=== PATIENT | female | born 1990 | race Caucasian/White ===

== ENCOUNTER 2016-03-01 19:38 | Emergency (ER) | payer SELFPAY ==
[2016-03-01 21:25] VITALS: BP 134/69
--- NOTE | 2016-03-01 21:58 | UC ---
Respiratory Complaint HPI - HPI Summary HPI Summary: Cough, fatigue, vomiting, for 2 days - History of Current Complaint Chief Complaint: UCGeneralIllness Stated Complaint: COUGH VOMITING Time Seen by Provider: 03/01/16 21:28 Hx Obtained From: Patient Hx Last Menstrual Period: 02/23/16 ?: No Onset/Duration: Sudden Onset, Lasting Days - 2, Still Present Timing: Constant Severity Initially: Moderate Severity Currently: Moderate Character: Cough: Nonproductive Aggravating Factors: Nothing Alleviating Factors: Nothing Associated Signs And Symptoms: Positive: Fever, Chills, URI, Nasal Congestion - Allergies/Home Medications Allergies/Adverse Reactions: Allergies Allergy/AdvReac Type Severity Reaction Status Date / Time No Known Allergies Allergy Verified 03/01/16 21:21 PMH/Surg Hx/FS Hx/Imm Hx Previously Healthy: No Respiratory History Of: Reports: Asthma GI/ History Of: Reports: Gall Bladder Disease - 10/27/15: Choley 2 years ago - Surgical History Surgical History: Yes Surgery Procedure, Year, and Place: CHOLECYSTECTOMY - Family History Known Family History: Positive: None, Cardiac Disease, Hypertension, Diabetes Negative: Respiratory Disease - Social History Occupation: Employed Full-time Lives: With Family Alcohol Use: None Substance Use Type: None Smoking Status (MU): Former Smoker Have You Smoked in the Last Year: No Household Exposure Type: Cigarettes - Immunization History Most Recent Influenza Vaccination: UNKNOWN Most Recent Tetanus Shot: UNKNOWN Most Recent Pneumonia Vaccination: NONE Review of Systems Constitutional: Fever, Chills, Fatigue Skin: Negative Eyes: Negative ENT: Ear Ache, Nasal Discharge Respiratory: Cough Cardiovascular: Negative Gastrointestinal: Vomiting Genitourinary: Negative Motor: Negative Neurovascular: Negative Musculoskeletal: Myalgia Neurological: Negative Psychological: Negative All Other Systems Reviewed And Are Negative: Yes Physical Exam Triage Information Reviewed: Yes Appearance: No Pain Distress, Well-Nourished, Ill-Appearing - mild Vital Signs: Initial Vital Signs Temp 98.3 F 03/01/16 21:22 Pulse 85 03/01/16 21:22 Resp 18 03/01/16 21:22 BP 134/69 03/01/16 21:22 Pulse Ox 98 03/01/16 21:22 Vital Signs Reviewed: Yes Eye Exam: Normal Eyes: Positive: Conjunctiva Clear ENT Exam: Normal ENT: Positive: Normal ENT inspection, Hearing grossly normal, Pharynx normal, Nasal congestion, Nasal drainage, TMs normal. Negative: Tonsillar swelling, Tonsillar exudate, Trismus, Muffled/hoarse voice Dental Exam: Normal Neck exam: Normal Neck: Positive: Supple, Nontender, No Lymphadenopathy Respiratory Exam: Normal Respiratory: Positive: Chest non-tender, Lungs clear, Normal breath sounds, No respiratory distress, No accessory muscle use Cardiovascular Exam: Normal Cardiovascular: Positive: RRR, No Murmur, Pulses Normal, Brisk Capillary Refill Abdominal Exam: Normal Abdomen Description: Positive: Nontender, No Organomegaly, Soft Bowel Sounds: Positive: Present Musculoskeletal Exam: Normal Musculoskeletal: Positive: Strength Intact, ROM Intact, No Edema Neurological Exam: Normal Neurological: Positive: Alert, Muscle Tone Normal Psychological Exam: Normal Psychological: Positive: Normal Response To Family, Decreased Age Appropriate Behavior Skin Exam: Normal UC Diagnostic Evaluation - Laboratory O2 Sat by Pulse Oximetry: 98 Respiratory Course/Dx - Course Course Of Treatment: increase fluids, rest, continue asthma meds follow with pcp re-check prn - Differential Dx/Diagnosis Differential Diagnosis/HQI/PQRI: Asthma, Bronchitis, Exacerbation Of COPD, Influenza, Laryngitis, Lower Resp Infection, Sinusitis Provider Diagnoses: Increase fluids, rest, follow with pcp re-check prn Discharge - Discharge Plan Condition: Stable Disposition: HOME Prescriptions: Mometasone/Formoter 200/5 MDI* [Dulera 200/5 MDI*] 2 puff INH BID #1 puff Patient Education Materials: Upper Respiratory Infection (ED), Viral Syndrome ( ED) Forms: *Work Release Referrals: [facility] [place] [facility] REFERRAL [Outside] - 5 Days
== END 2016-03-01 22:23 | disposition home or self-care (01) ==
LOC: UCEAST 19:38
DX: J06.9 Acute upper respiratory infection, unspecified (principal); J45.909 Unspecified asthma, uncomplicated; Z87.891 Personal history of nicotine dependence
CPT/HCPCS: 87502; 99212; G0463

== ENCOUNTER 2017-07-04 21:22 | Inpatient (IN) | payer SELFPAY ==
[2017-07-04] MEDS ORDERED: methylPREDNISolone 125 MG* 2 ML VIAL IV ONE (21:25)
[2017-07-04] MEDS ORDERED: Magnesium Sulfate 2 GM IV* 2 GM/50 ML BAG IVPB ONE (21:25)
[2017-07-04] MEDS ORDERED: NS 0.9% 1000 ML* 1,000 ML IV ONE (21:25)
[2017-07-04] MEDS ORDERED: EPINEPHrine AMP 1 MG/ML IM ONE (21:25)
[2017-07-04] MEDS ORDERED: Albuterol 0.5% CONC NEB.SOL* 5 MG/ML 20 ml BOT INH ONE ×2 (21:25→22:02)
[2017-07-04 21:39] LABS: ABS Basophils 0 10^3/ul (0-0.2); ABS Eosinophils 0 10^3/ul (0-0.6); ABS Lymphocytes 0.6 10^3/ul (1.0-4.8); ABS Monocytes 0.3 10^3/ul (0-0.8); ABS Neutrophils 7.6 10^3/ul (1.5-7.7); ABS Nucleated RBC 0 10^3/ul; Eosinophil % 0 % (0-6); Hematocrit 42 % (35-47); Lymphocyte % 6.8 % (25-47); Mean Corpuscular HGB Conc 33 g/dl (31-36); Mean Corpuscular Hemoglobin 29 pg (27-31); Mean Corpuscular Volume 86 fL (80-97); Mean Platelet Volume 7.9 um3 (7.4-10.4); Nucleated Red Blood Cells % 0.1; Platelet Count 208 10^3/ul (150-450); Red Blood Count 4.87 10^6/ul (4.0-5.4); Red Cell Distribution Width 13 % (10.5-15); White Blood Count 8.5 10^3/ul (3.5-10.8)
[2017-07-04] MEDS ORDERED: EPINEPHRINE 1 MG/ML 1 ML VIAL IM ONE (22:00)
[2017-07-04 22:01] LABS: EGFR Non-African American 149.1 (>60)
[2017-07-05] MEDS ORDERED: Albuterol 0.5% CONC NEB.SOL* 5 MG/ML 20 ml BOT INH ONE (00:09)
[2017-07-05] MEDS ORDERED: Ondansetron ODT TAB* 4 MG PO PRN (04:05)
[2017-07-05] MEDS ORDERED: EPINEPHRINE 1 MG/ML 1 ML VIAL IM ONE (04:11)
[2017-07-05] MEDS ORDERED: EPINEPHrine AMP 1 MG/ML IM ONE (04:21)
[2017-07-05] MEDS ORDERED: LORazepam INJ* 2 MG/ML 1 ML VIAL IV ONE (04:30)
[2017-07-05] MEDS: LORazepam INJ* 2 MG/ML 1 ML VIAL IV PRN ×3 (04:36→21:20)
--- NOTE | 2017-07-05 05:00 | HP ---
H&P (Free Text) History and Physical: PCP: none Date/Time: 07/05/2017 0400 CC: SOB HPI: Ms Mathew is a 26YO female HX mod/sev persistent asthma previously requiring admission, but never intubation who reports onset of URI symptoms ~2 days ago with progressive SOB & wheeze. She has a mild cough with scant phlegm production, but she has not checked for color. She denies F/C, sweats, N/V/D, headache, & rash. She does have non-radiating mid-back pain with inspiration. She has received 2hrs of metaneb in the ED with IV magnesium, 0.3 & 0.5mg SQ epinephrine, 125mg IV methylprednisolone, & 2g IV magnesium in ED. Despite this she continues to have oneill-inspiratory and expiratory wheezing with fair to poor aeration & markedly prolonged expiratory phase. She is on VapoTherm and will be admitted to ICU for close monitoring and ongoing aggressive management. 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 status FamHx: Mother: alive w/ "heart problems"; Father: alive w/ COPD & "heart problems"; sister: healthy ROS: as above, otherwise reviewed and all were negative vitals: Vital Signs Temp 37.0 C 07/05/17 04:56 Pulse 104 07/05/17 05:00 Resp 20 07/05/17 05:00 BP 112/81 07/05/17 04:56 Pulse Ox 99 07/05/17 05:00 Intake & Output 07/04/17 07/04/17 07/05/17 11:59 23:59 11:59 Intake Total 1000 50 Balance 1000 50 Weight 68.039 kg 68.039 kg Intake: IV Fluids 1000 50 Oral 0 Constitutional: NAD, normally developed, overweight white female HEENM: atraumatic; sclera/conjunctiva: anicteric/clear; hearing: clinically intact; oropharynx: clear, mucosa moist Neck: soft tissue: non-tender; thyroid: normal Pulmonary: moderate oneill-inspiratory/expiratory wheeze w/ markedly prolonged expiratory phase, fair to poor aeration, mild accessory muscle use CV: TR/RR, normal S1S2, no carotid bruit, no jugular venous distention, 2+ B DP/ PT, no edema Abdominal: soft, non-distended, non-tender, no rebound/guarding/rigidity, normoactive bowel sounds, no hepatosplenomegaly or masses, no costovertebral angle tenderness Musculoskeletal: general: grossly intact, non-tender Integumental: no open wounds or rash noted Psychiatric orientation: AA&O to PPS affect: ill-appearing mood: cooperative eye contact: fair content: reliable responses: timely insight: fair to good Testing: Lab Results 07/04/17 07/04/17 07/05/17 Range/Units 21:32 21:32 04:14 WBC 8.5 (3.5-10.8) 10^3/ul RBC 4.87 (4.0-5.4) 10^6/ul Hgb 14.0 (12.0-16.0) g/dl Hct 42 (35-47) % MCV 86 (80-97) fL MCH 29 (27-31) pg MCHC 33 (31-36) g/dl RDW 13 (10.5-15) % Plt Count 208 (150-450) 10^3/ul MPV 7.9 (7.4-10.4) um3 Neut % (Auto) 89.5 H (38-83) % Lymph % (Auto) 6.8 L (25-47) % [place] % (Auto) 3.7 (0-7) % Eos % (Auto) 0 (0-6) % Baso % (Auto) 0 (0-2) % Absolute Neuts (auto) 7.6 (1.5-7.7) 10^3/ul Absolute Lymphs (auto) 0.6 L (1.0-4.8) 10^3/ul Absolute Monos (auto) 0.3 (0-0.8) 10^3/ul Absolute Eos (auto) 0 (0-0.6) 10^3/ul Absolute Basos (auto) 0 (0-0.2) 10^3/ul Absolute Nucleated RBC 0 10^3/ul Nucleated RBC % 0.1 Sodium 141 (139-145) mmol/L Potassium 4.1 (3.5-5.0) mmol/L Chloride 107 (101-111) mmol/L Carbon Dioxide 24 (22-32) mmol/L Anion Gap 10 (2-11) mmol/L BUN 6 (6-24) mg/dL Creatinine 0.50 L (0.51-0.95) mg/dL Est GFR ( Amer) 191.8 (>60) Est GFR (Non-Af Amer) 149.1 (>60) BUN/Creatinine Ratio 12.0 (8-20) Glucose 150 H (70-100) mg/dL Lactic Acid 0.9 (0.5-2.0) mmol/L Calcium 9.5 (8.6-10.3) mg/dL Total Bilirubin 0.50 (0.2-1.0) mg/dL AST 15 (13-39) U/L ALT 16 (7-52) U/L Alkaline Phosphatase 70 (34-104) U/L Total Protein 7.2 (6.4-8.9) g/dL Albumin 4.9 (3.2-5.2) g/dL Globulin 2.3 (2-4) g/dL Albumin/Globulin Ratio 2.1 (1-3) Beta HCG, Quant < 0.60 mIU/mL CXR, personally reviewed: negative for acute process Impression: 26F presenting in status asthmaticus DIAGNOSIS & PLAN Primary status asthmaticus : albuterol nebs : mometasone/formoterol : IV methylprednisolone : VapoTherm : NPO x/ meds w/ sips H2O : check rapid influenza : consider pulmonology consult in AM : IV lorazepam PRN for anxiety : supportive care Admission Rational: inpatient for refractory status asthmaticus requiring ICU monitoring and intervention; inappropriate for outpatient setting DVTp: MARLO Code Status: full
[2017-07-05] MEDS: Albuterol 2.5 MG/3 ML NEB.SOL* (0.083%) INH PRN ×3 (05:51→22:33)
[2017-07-05] MEDS ORDERED: methylPREDNISolone SOD 40 MG* 1 ML VIAL IV SCH (06:30)
[2017-07-05] MEDS: Omeprazole CAP* 20 MG PO SCH (06:41)
[2017-07-05] MEDS: NS 0.9% 1000 ML* 1,000 ML IV SCH (06:43)
[2017-07-05] MEDS ORDERED: EPINEPHrine,Rac 2.25% NEB.SOL* 0.5 ML INH ONE (07:08)
[2017-07-05] MEDS: Albuterol 2.5 MG/3 ML NEB.SOL* (0.083%) INH SCH ×3 (07:15→19:53)
[2017-07-05] MEDS ORDERED: EPINEPHrine,Rac 2.25% NEB.SOL* 0.5 ML ONE (07:17)
--- NOTE | 2017-07-05 07:30 | RAD ---
HISTORY: Shortness breath, asthma COMPARISONS: October 28, 2015 VIEWS: 1: frontal portable view of the chest at 9:50 PM FINDINGS: LINES AND TUBES: None. CARDIOMEDIASTINAL SILHOUETTE: The cardiomediastinal silhouette is normal for portable technique. PLEURA: The costophrenic angles are sharp. No pleural abnormalities are noted. LUNG PARENCHYMA: The lungs are clear. ABDOMEN: The upper abdomen is clear. There is no subphrenic gas. BONES AND SOFT TISSUES: No bone or soft tissue abnormalities are noted. IMPRESSION: NO ACTIVE CARDIOPULMONARY DISEASE.
[2017-07-05] MEDS: Mometasone/Formoter 200/5 MDI INH SCH ×2 (08:06→19:54)
[2017-07-05] MEDS: methylPREDNISolone 125 MG* 2 ML VIAL IV SCH ×2 (09:42→17:24)
--- NOTE | 2017-07-05 11:03 | CONSULT ---
Consult Consult: Consultation Note Critical Care Requesting Physician: Dr Loki Blandon Reason for consult: asthma exaccerbation Limitations in history/physical: none Date of consult: 07/05/2017 HPI: 26y F pmhx of Asthma; comes to ER for sob and increased wheezing x1 days. She states past 2-3 days of cough, sputum and sneezing, runny nose. Sick contact at work+. No fever/chills/n/v/abd pain/diarrhea. No joint swelling. No chest pain. Takes nebs at home every 6 hours. No prior intubations. No recent illness or hospitalization otherwise noted. In ER, she was in resp distress. Given neb tx multiple times, mag sulfate IV, then SC EPI, some improvement. Then distress worsened and placed on NIV for support. Admitted to ICU. No IV abx given, afebrile. Wbc normal. Influenza screen negative. CXR without infitlrates/effusions/ptx. Currently awake, on bed, mild sob but otherwise without acc muscle use. Bedside noted wheezing diffusely, good air entry otherwiase, no acc muscle use. No rhales She states she feels better than last night ROS: negative except for pertinent positives mentioned above. PMHx: asthma PSHx: cholecystectomy Family History: heart disease mother; COPD and heart disease in father. Social History: Alcohol-no, Smoking-no, Drug use-no Allergies: Allergies Allergy/AdvReac Type Severity Reaction Status Date / Time NSAIDS (Non-Steroidal Allergy Shortness Verified 07/04/17 21:26 Anti-Inflamma of Breath Home Medications: Albuterol HFA INHALER* [Ventolin HFA Inhaler*] 2 puff INH QID PRN #1 mdi [Rx Confirmed 07/04/17] Mometasone/Formoter 200/5 MDI* [Dulera 200/5 MDI*] 2 puff INH BID #1 puff [Rx Confirmed 07/04/17] Albuterol 0.5% CONC NEB.FINA* 1 ml .SEE ORDER Q4H PRN 07/05/17 [History Confirmed 07/05/17] Tele: nsr Vitals: Vital Signs Temp 98.6 F 07/05/17 07:28 Pulse 86 07/05/17 10:00 Resp 24 07/05/17 10:00 BP 136/77 07/05/17 10:00 Pulse Ox 99 07/05/17 10:00 Intake & Output 07/04/17 07/05/17 07/05/17 18:59 06:59 18:59 Intake Total 1050 20 Balance 1050 20 Weight 156 lb 11.979 oz Intake: IV Fluids 1050 Oral 0 20 Other: # Voids 1 O2/Vent: hiflow 100% 30lpm Infusions: heplock Current Medications: Acetaminophen (Tylenol Tab*) 650 mg PO Q6H PRN PRN Reason: FEVER/PAIN Albuterol (Ventolin 2.5 Mg/3 Ml Neb.Fina*) 2.5 mg INH Q2H PRN PRN Reason: SOB/WHEEZING Last Admin: 07/05/17 05:51 Dose: 2.5 mg Albuterol (Ventolin 2.5 Mg/3 Ml Neb.Fina*) 2.5 mg INH [id number] AWAKE [facility] Last Admin: 07/05/17 07:15 Dose: 2.5 mg Sodium Chloride (Ns 0.9% 1000 Ml*) 1,000 mls @ 50 mls/hr IV PER RATE [facility] Last Admin: 07/05/17 06:43 Dose: 50 mls/hr Lorazepam (Ativan Inj*) 0.5 mg IV Q6H PRN PRN Reason: ANXIETY Last Admin: 07/05/17 06:37 Dose: 0.5 mg Methylprednisolone Sodium Succinate (Solu-Medrol 125mg *) 60 mg IV Q8H [facility] Last Admin: 07/05/17 09:42 Dose: 60 mg Mometasone Furoate/Formoterol Fumar (Dulera 200/5 Mdi*) 2 puff INH BID [facility] Last Admin: 07/05/17 08:06 Dose: 2 puff Omeprazole (Prilosec Cap*) 20 mg PO DAILY@0600 [facility] Last Admin: 07/05/17 06:41 Dose: 20 mg Ondansetron HCl (Zofran Odt Tab*) 4 mg PO Q6H PRN PRN Reason: n/v Physical Exam: General: awake, alert, mild resp distress/tachypnea+, no diaphoresis Head: normocephalic, atraumatic HEENT: no pallor, no icterus, moist mucous membranes Neck: soft, supple, no jvd, no stridor CVS: normal rate, regular, no murmur Resp: bilateral air entry, bilateral diffuse wheezing++, no rhales, no acc muscle use Abdomen: soft, nontender, nondistended, bowel sounds present Ext: pulses+, warm, no edema Skin: intact, no breakdown, no dryness Neuro: awake, alert, orientedx3, moving all extremities, no gross focal deficit Labs: Laboratory Results - last 24 hr 07/04/17 07/04/17 07/05/17 21:32 21:32 04:14 WBC 8.5 RBC 4.87 Hgb 14.0 Hct 42 MCV 86 MCH 29 MCHC 33 RDW 13 Plt Count 208 MPV 7.9 Neut % (Auto) 89.5 H Lymph % (Auto) 6.8 L [place] % (Auto) 3.7 Eos % (Auto) 0 Baso % (Auto) 0 Absolute Neuts (auto) 7.6 Absolute Lymphs (auto) 0.6 L Absolute Monos (auto) 0.3 Absolute Eos (auto) 0 Absolute Basos (auto) 0 Absolute Nucleated RBC 0 Nucleated RBC % 0.1 Patient Temperature ABG pH ABG pH (Temp Correct) ABG pCO2 ABG pCO2 (Temp Corrct ABG pO2 ABG pO2 (Temp Correct ABG HCO3 ABG O2 Saturation ABG Base Excess Respiration Rate Ventilator Type Vent Mode FiO2 Inspiratory Time PEEP Pressure Support Pressure Control EPAP IPAP BiPAP Sodium 141 Potassium 4.1 Chloride 107 Carbon Dioxide 24 Anion Gap 10 BUN 6 Creatinine 0.50 L Est GFR ( Amer) 191.8 Est GFR (Non-Af Amer) 149.1 BUN/Creatinine Ratio 12.0 Glucose 150 H Lactic Acid 0.9 Calcium 9.5 Total Bilirubin 0.50 AST 15 ALT 16 Alkaline Phosphatase 70 Total Protein 7.2 Albumin 4.9 Globulin 2.3 Albumin/Globulin Ratio 2.1 Beta HCG, Quant < 0.60 Influenza A (Rapid) Influenza B (Rapid) 07/05/17 07/05/17 05:24 09:40 WBC RBC Hgb Hct MCV MCH MCHC RDW Plt Count MPV Neut % (Auto) Lymph % (Auto) [place] % (Auto) Eos % (Auto) Baso % (Auto) Absolute Neuts (auto) Absolute Lymphs (auto) Absolute Monos (auto) Absolute Eos (auto) Absolute Basos (auto) Absolute Nucleated RBC Nucleated RBC % Patient Temperature Not Reportable ABG pH 7.36 ABG pH (Temp Correct) Not Reportable ABG pCO2 43 ABG pCO2 (Temp Corrct Not Reportable ABG pO2 277 H ABG pO2 (Temp Correct Not Reportable ABG HCO3 23.9 ABG O2 Saturation 99.5 H ABG Base Excess -1.3 Respiration Rate Not Reportable Ventilator Type Not Reportable Vent Mode Not Reportable FiO2 100 Inspiratory Time Not Reportable PEEP Not Reportable Pressure Support Not Reportable Pressure Control Not Reportable EPAP Not Reportable IPAP Not Reportable BiPAP Not Reportable Sodium Potassium Chloride Carbon Dioxide Anion Gap BUN Creatinine Est GFR ( Amer) Est GFR (Non-Af Amer) BUN/Creatinine Ratio Glucose Lactic Acid Calcium Total Bilirubin AST ALT Alkaline Phosphatase Total Protein Albumin Globulin Albumin/Globulin Ratio Beta HCG, Quant Influenza A (Rapid) Negative Influenza B (Rapid) Negative Imaging: cxr 07/04 - no infiltrate/effusion/ptx Assessment: 26y F pmhx of Asthma; comes to ER for sob and increased wheezing x1 days. She states past 2-3 days of cough, sputum and sneezing, runny nose. Sick contact at work+. In ER given steroids/neb/epi sc, mild improvement, started on NIV and then hiflow, admitted to ICU. -Status asthmaticus -acute hypoxic respiratory failure -Suspected Viral URI Plan: Neuro- stable CVS- less tachy, BP stable. IVF as needed. NSR. Resp- diffuse wheezing noted. still has airway bronchospasm occurring. cont solumedrol 60mg iv q8h. cont bronchodilators q4h. add terbutaline 2.5mg SC x1. ABG with ph 7.37, PCO2 43, PO2 200s on 100% 30lpm hiflow. Some hypoxia noted. If further distress, repeat ABG and start NIV again to off set any developing hypercapnea. No abx, cxr clear. ID- afebrile. wbc 8. no source of pneumonia. possible viral resp infection. influenza neg. supportive care at this time. GI- PO regular diet as tolerated, keep to liquid for now given resp status. PPI po. GI prophylaxis. Renal- Cr okay, K okay. IVF as needed. no wilks. Heme- hg okay. no bleeding. plt okay Endo- fingersticks as needed. on steroids now, expect some hyperglycemia. Musculsk- pressure ulcer proph. bedrest for today Wounds- none Nutrition- start clear liquid diet for now DVT prophylaxis: SCDs, heparin sq GI prophylaxis: ppi Central Line: no Arterial Line: no Wilks Cathetor: no Disposition: ICU Code Status: full code Total Critical Care time is 45 minutes, excluding procedures/teaching Gumaro Valladares MD [place] Cleaver (Electronically Signed)
[2017-07-05] MEDS ORDERED: Terbutaline INJ* 1 MG/ML VIAL SUBCUT ONE (11:08)
[2017-07-05] MEDS ORDERED: Pantoprazole TAB (NF) 40 MG TAB PO SCH (12:00)
[2017-07-05] MEDS: Heparin VIAL(*) 5000 UNITS/ML VIAL (FIVE THOUSAND) SUBCUT SCH ×2 (14:23→23:40)
[2017-07-05] MEDS: Acetaminophen TAB* 325 MG PO PRN (20:16)
[2017-07-05] MEDS ORDERED: Ketorolac INJ* 30 MG/ML 1 ML VIAL IV PUSH ONE (22:50)
[2017-07-05] MEDS ORDERED: oxyCODONE/Acetamin 5/325 MG* TAB ONE (23:19)
[2017-07-05] MEDS: oxyCODONE/Acetamin 5/325 MG* TAB PO PRN (23:24)
[2017-07-06] MEDS: Albuterol 2.5 MG/3 ML NEB.SOL* (0.083%) INH SCH ×4 (00:53→21:06)
[2017-07-06] MEDS: methylPREDNISolone 125 MG* 2 ML VIAL IV SCH ×2 (01:32→09:08)
[2017-07-06] MEDS: NS 0.9% 1000 ML* 1,000 ML IV SCH (02:32)
[2017-07-06 05:22] LABS: Hematocrit 37 % (35-47); Hemoglobin 12.5 g/dl (12.0-16.0); Mean Corpuscular HGB Conc 34 g/dl (31-36); Mean Corpuscular Hemoglobin 29 pg (27-31); Mean Corpuscular Volume 87 fL (80-97); Mean Platelet Volume 7.9 um3 (7.4-10.4); Platelet Count 233 10^3/ul (150-450); Red Blood Count 4.29 10^6/ul (4.0-5.4); Red Cell Distribution Width 13 % (10.5-15); White Blood Count 9.4 10^3/ul (3.5-10.8)
[2017-07-06 05:40] LABS: EGFR Non-African American 187.5 (>60)
[2017-07-06] MEDS: Heparin VIAL(*) 5000 UNITS/ML VIAL (FIVE THOUSAND) SUBCUT SCH ×3 (05:57→21:33)
[2017-07-06] MEDS: oxyCODONE/Acetamin 5/325 MG* TAB PO PRN ×3 (05:57→22:55)
[2017-07-06] MEDS: Omeprazole CAP* 20 MG PO SCH (05:58)
[2017-07-06] MEDS: Albuterol 2.5 MG/3 ML NEB.SOL* (0.083%) INH PRN ×3 (08:07→22:47)
[2017-07-06] MEDS: Mometasone/Formoter 200/5 MDI INH SCH ×2 (08:20→22:57)
--- NOTE | 2017-07-06 13:29 | PN ---
Date of Service: 07/06/17 Critical Care Services: Much improved this AM - up in bed and breathing comfortably Vital Signs: Temp Pulse Resp BP SpO2 FiO2 99.7 F 101 20 115/77 94 35 Physical Exam: Gen:Alert, oriented, appears comfortable. Lungs: End-expiratory wheezing both lungs Cardiac: Reg rhythm Extremities:No cyanosis or edema Fluid Balance (Past 24 Hours): 07/06/17 07/07/17 06:59 06:59 Intake Total 1539 685 Output Total 500 350 Balance 1039 335 Weight 154 lb Intake: IV Fluids 1179 335 NS (0.9%) 1179 335 Oral 360 350 Output: Urine 500 350 Other: Estimated Void Medium # Voids 1 Labs: 07/06/17 07/06/17 07/06/17 05:10 05:10 05:10 WBC 9.4 RBC 4.29 Hgb 12.5 Hct 37 MCV 87 MCH 29 MCHC 34 RDW 13 Plt Count 233 MPV 7.9 ABG pH 7.38 ABG pCO2 44 ABG pO2 114 H ABG HCO3 25.4 ABG O2 Saturation 98.8 H ABG Base Excess 0.6 O2 Delivery Device vapotherm Sodium 138 L Potassium 4.2 Chloride 107 Carbon Dioxide 25 BUN 16 Creatinine 0.41 L Est GFR ( Amer) 241.2 Est GFR (Non-Af Amer) 187.5 BUN/Creatinine Ratio 39.0 H Glucose 116 H Calcium 8.6 Studies: None today Nutrition: Oral diet (unrestricted) started this AM Impression: Acute exacerbation of asthma, has improved since admission. No evidence of a treatable infection. Plan: Continue bronchodilators and steroids. Can transfer out of ICU today. Will switch from IV to PO steroids.
[2017-07-06] MEDS: predniSONE TAB* 20 MG PO SCH (14:30)
[2017-07-06] MEDS ORDERED: Benzonatate CAP* 100 MG PO PRN (23:34)
[2017-07-07] MEDS: Albuterol 2.5 MG/3 ML NEB.SOL* (0.083%) INH SCH ×6 (01:50→23:33)
[2017-07-07] MEDS: Heparin VIAL(*) 5000 UNITS/ML VIAL (FIVE THOUSAND) SUBCUT SCH ×3 (05:58→21:56)
[2017-07-07] MEDS: Omeprazole CAP* 20 MG PO SCH (05:58)
[2017-07-07 06:07] LABS: Hematocrit 34 % (35-47); Hemoglobin 11.5 g/dl (12.0-16.0); Mean Corpuscular HGB Conc 34 g/dl (31-36); Mean Corpuscular Hemoglobin 29 pg (27-31); Mean Corpuscular Volume 86 fL (80-97); Platelet Count 196 10^3/ul (150-450); Red Blood Count 3.96 10^6/ul (4.0-5.4); Red Cell Distribution Width 13 % (10.5-15); White Blood Count 8.6 10^3/ul (3.5-10.8)
[2017-07-07 06:24] LABS: EGFR Non-African American 164.2 (>60)
[2017-07-07] MEDS: Mometasone/Formoter 200/5 MDI INH SCH ×2 (07:51→19:41)
[2017-07-07] MEDS: predniSONE TAB* 20 MG PO SCH (08:46)
--- NOTE | 2017-07-07 09:26 | PN ---
Subjective Date of Service: 07/07/17 Interval History: HOSPITALIST PROGRESS NOTE Patient seen and examined at bedside. Care reviewed and d/w John Hamilton RN. She feels a little better this AM, but was more dyspneic last night, SO2 was 90 % and required supplemental O2 again. Does not know her best peak flow. Family History: Unchanged from Admission Social History: Unchanged from Admission Past Medical History: Unchanged from Admission Objective Active Medications: Acetaminophen (Tylenol Tab*) 650 mg PO Q6H PRN PRN Reason: FEVER/PAIN Last Admin: 07/05/17 20:16 Dose: 650 mg Albuterol (Ventolin 2.5 Mg/3 Ml Neb.Cassidy*) 2.5 mg INH Q2H PRN PRN Reason: SOB/WHEEZING Last Admin: 07/06/17 22:47 Dose: 2.5 mg Albuterol (Ventolin 2.5 Mg/3 Ml Neb.Cassidy*) 2.5 mg INH [id number] AWAKE RIAZ Benzonatate (Tessalon Cap*) 100 mg PO BID PRN PRN Reason: COUGH Last Admin: 07/06/17 23:57 Dose: 100 mg Heparin Sodium (Porcine) (Heparin Vial(*)) 5,000 units SUBCUT Q8HR RIAZ Last Admin: 07/07/17 05:58 Dose: 5,000 units Lorazepam (Ativan Inj*) 0.5 mg IV Q6H PRN PRN Reason: ANXIETY Last Admin: 07/05/17 21:20 Dose: 0.5 mg Mometasone Furoate/Formoterol Fumar (Dulera 200/5 Mdi*) 2 puff INH BID RIAZ Last Admin: 07/07/17 07:51 Dose: 2 puff Omeprazole (Prilosec Cap*) 20 mg PO DAILY@0600 RIAZ Last Admin: 07/07/17 05:58 Dose: 20 mg Ondansetron HCl (Zofran Odt Tab*) 4 mg PO Q6H PRN PRN Reason: n/v Oxycodone/Acetaminophen (Percocet 5/325 Tab*) 1 tab PO Q6H PRN PRN Reason: PAIN Last Admin: 07/06/17 22:55 Dose: 1 tab Prednisone (Deltasone Tab*) 60 mg PO DAILY RIAZ Last Admin: 07/07/17 08:46 Dose: 60 mg Vital Signs - 8 hr 07/07/17 07/07/17 07/07/17 02:19 03:29 04:03 Temperature 97.9 F Pulse Rate 71 Respiratory 18 16 Rate Blood Pressure 106/48 (mmHg) O2 Sat by Pulse 92 94 Oximetry 07/07/17 07/07/17 07/07/17 07:08 07:52 07:56 Temperature 98.2 F Pulse Rate 71 73 Respiratory 16 14 20 Rate Blood Pressure 110/64 (mmHg) O2 Sat by Pulse 96 98 Oximetry Oxygen Devices in Use Now: Nasal Cannula - 2 liters Appearance: Young lady sitting up in bed in NAD. Eyes: No Scleral Icterus Ears/Nose/Mouth/Throat: Mucous Membranes Moist Neck: Trachea Midline Respiratory: Symmetrical Chest Expansion and Respiratory Effort, - - BS+ bilaterally with diffuse rhonchi and wheezes Cardiovascular: NL Sounds; No Murmurs; No JVD, RRR Extremities: No Edema, - - Multiple cutting scars on bilateral UE Neurological: Alert and Oriented x 3, NL Muscle Strength and Tone Result Diagrams: 07/07/17 05:38 07/07/17 05:38 Assess/Plan/Problems-Billing Assessment: Ms. Mathew is a 26yo F with PMH of asthma who presented to ED in status asthmaticus requiring bronchodilators, steroids, magnesium, epinephrine and ICU admission for Vapotherm. - Patient Problems (1) Status asthmaticus Comment: - Likely secondary to viral infection. - No indication for antibiotics at this time. - Continue steroids, bronchodilators. - Check peak flow pre/post treatment. - Pulm consultation. (2) DVT prophylaxis Comment: - SQ heparin. (3) Full code status Status and Disposition: Inpatient for management of asthma.
[2017-07-07] MEDS: Acetaminophen TAB* 325 MG PO PRN (21:55)
--- NOTE | 2017-07-08 | CONS ---
PULMONARY CONSULTATION REPORT: DATE OF CONSULT: 07/07/17 CONSULTATION REQUESTED BY: Dr. Ginger Candelario. REASON FOR CONSULTATION: Evaluation of asthma exacerbation, hypoxemia. HISTORY OF PRESENT ILLNESS: The patient is a 26-year-old female with history of asthma, prior admission few months ago, known to me from prior evaluation. The patient presents for evaluation of worsening shortness of breath. The patient reports URI symptoms 2 days ago, has been having worsening shortness of breath and wheeze since then. The patient also reports chest tightness, unable to take deep breath. The patient was found to be significantly tachypneic while seen in the ED, received iron, magnesium, epinephrine, methylprednisolone and was placed on Vapotherm for hypoxemia and was admitted to ICU for close monitoring. The patient subsequently improved, was tapered off of oxygen, did not require intubation and was subsequently transferred to regular medical floor. The patient was found to having low oxygen levels around 88% to 89% on room air this morning and was placed back on oxygen. She was subsequently being titrated off of oxygen. The patient was seen and examined at bedside. The patient reports improvement in shortness of breath, still continues to have cough with the deep breathing. Cough is nonproductive of significant amount of phlegm. She has been monitoring peak flow which has been around 300. The patient has been receiving nebulizers every 4 hours during the day. The patient denies fevers, chills, nausea, vomiting, abdominal pain, diarrhea, joint pains or swelling, headaches, blurry vision, urinary complaints. The patient currently saturating 96% to 97% on room air. The patient also on steroids. She was also started on Dulera. She has not been on maintenance inhaler recently due to insurance issues and could not afford the medication. She did not have elevated white count. Blood test analysis did not reveal significant hypoxemia. She did not have significant acidosis. PAST MEDICAL HISTORY: Asthma. PAST SURGICAL HISTORY: Cholecystectomy. MEDICATIONS: Medications at home: 1. Albuterol 2 puffs 4 times a day p.r.n. 2. She was supposed to be on Dulera, has not been able to afford the medication. ALLERGIES: NSAIDS. FAMILY HISTORY: Heart disease in mother, CAD and heart disease in father. SOCIAL HISTORY: Denies alcohol, tobacco or drug abuse. REVIEW OF SYSTEMS: All 14 systems reviewed and as per HPI. PHYSICAL EXAM: The patient in bed, in no apparent distress, not using accessory muscles of respiration. Vital Signs: Temperature 98.2, heart rate 73 to 95 beats per minute, respiratory rate 14 per minute, O2 sat 94% to 95% on room air. HEENT: Pupils equal, reactive to light. Mucous membranes moist. Sclerae anicteric. Lungs: Significant expiratory wheezing bilaterally. Cardiovascular: S1, S2 present, regular, tachycardic. Abdomen: Soft, nontender, nondistended. Bowel sounds present. Extremities: Normal range of motion. No edema. Neuro: No focal deficits. Skin: No rash or bruise. DIAGNOSTIC STUDIES/LAB DATA: Laboratory exam: WBC count 8.6, hemoglobin 11.5, hematocrit 34, platelet count 196. Blood gas analysis on admission showed mild respiratory acidosis with pH of 7.36, PCO2 of 43, PO2 of 277, bicarb of 23. Sodium 143, potassium 3.3, chloride 111, bicarb 28, BUN 16, creatinine 0.46, lactic acid within normal limits. LFTs within normal limits. Influenza A and B negative. Chest x-ray on admission was personally reviewed by me. No acute airspace opacities were noted, no evidence of significant hyperinflation was seen. IMPRESSION AND RECOMMENDATIONS: 26-year-old female with a history of asthma with recent viral bronchitis with acute asthma exacerbation. 1. Acute asthma exacerbation secondary to viral bronchitis. 2. The patient also reports history of allergies, has been having allergy symptoms recently. 3. Denied significant gastroesophageal reflux disease symptoms. 4. Also had significant hypoxemic respiratory failure on admission, improved. Currently saturating well on room air. 5. Still has significant wheezing on auscultation, overall improved. 6. Continue with current management. 7. Continue with nebulizers every 4 hours. 8. The patient on prednisone 60 mg daily, will benefit from prolonged taper over the next to 3 to 4 weeks. 9. Continue with Dulera. 10. Educated the patient on importance of maintenance inhaler for asthma. 11. She will need help with psychologist social upon discharge for inhalers. 12. Continue with gastroesophageal reflux disease therapy. 13. Asthma education was provided. Thank you for allowing me to participate in the care of your patient. Will follow with you. [id number]/[facility] #: [id number] VANDANA
[2017-07-08] MEDS: Albuterol 2.5 MG/3 ML NEB.SOL* (0.083%) INH SCH ×3 (03:05→11:28)
[2017-07-08] MEDS: Heparin VIAL(*) 5000 UNITS/ML VIAL (FIVE THOUSAND) SUBCUT SCH (05:53)
[2017-07-08] MEDS: Omeprazole CAP* 20 MG PO SCH (05:53)
[2017-07-08] MEDS: predniSONE TAB* 20 MG PO SCH (07:28)
[2017-07-08] MEDS: Mometasone/Formoter 200/5 MDI INH SCH (08:10)
[2017-07-08] MEDS ORDERED: Albuterol HFA INHALER* 8 gm MDI INH PRN (12:04)
[2017-07-08 12:49] VITALS: BP 105/66
--- NOTE | 2017-07-08 15:56 | PN ---
Progress Note - Progress Note Date of Service: 07/08/17 - pulm f/u note Note: Pt seen and examined at bedside. Pt reports feeling better. Not requiring O2. Ambulated without much dyspnea Active Medications Generic Name Dose Route Start Last Admin Trade Name Freq PRN Reason Stop Dose Admin Acetaminophen 650 mg 07/05/17 04:05 07/07/17 21:55 Tylenol Tab* PO 650 mg Q6H PRN Administration FEVER/PAIN Albuterol 2.5 mg 07/05/17 04:05 07/06/17 22:47 Ventolin 2.5 Mg/3 Ml Neb.Cassidy* INH 2.5 mg Q2H PRN Administration SOB/WHEEZING Albuterol 2.5 mg 07/07/17 11:00 07/08/17 11:28 Ventolin 2.5 Mg/3 Ml Neb.Cassidy* INH 2.5 mg [id number] AWAKE RIAZ Administration Albuterol 2 puff 07/08/17 12:04 Ventolin Hfa Inhaler* INH Q4H PRN SOB/WHEEZING Benzonatate 100 mg 07/06/17 23:34 07/06/17 23:57 Tessalon Cap* PO 100 mg BID PRN Administration COUGH Heparin Sodium (Porcine) 5,000 units 07/05/17 14:00 07/08/17 05:53 Heparin Vial(*) SUBCUT 5,000 units Q8HR RIAZ Administration Lorazepam 0.5 mg 07/05/17 04:05 07/05/17 21:20 Ativan Inj* IV 0.5 mg Q6H PRN Administration ANXIETY Mometasone Furoate/Formoterol Fumar 2 puff 07/05/17 09:00 07/08/17 08:10 Dulera 200/5 Mdi* INH 2 puff BID RIAZ Administration Omeprazole 20 mg 07/05/17 06:00 07/08/17 05:53 Prilosec Cap* PO 20 mg DAILY@0600 RIAZ Administration Ondansetron HCl 4 mg 07/05/17 04:05 Zofran Odt Tab* PO Q6H PRN n/v Oxycodone/Acetaminophen 1 tab 07/05/17 23:04 07/06/17 22:55 Percocet 5/325 Tab* PO 1 tab Q6H PRN Administration PAIN Prednisone 60 mg 07/06/17 14:00 07/08/17 07:28 Deltasone Tab* PO 60 mg DAILY RIAZ Administration Vital Signs Temp Pulse Resp BP Pulse Ox 98.4 F 90 14 105/66 90 07/08/17 11:11 07/08/17 11:28 07/08/17 11:28 07/08/17 11:11 07/08/17 11:28 O/E: Pt in NAD HEENT: PERRLA, No JVD Lungs: scaterred exp wheeze on auscultation CVS:S1, S2+ Abd: Soft, BS+ Ext: Normal ROM Skin: No rash or bruise Neuro: No focal defecits Labs: No new results I/R: 26 y o f with h/o asthma, has not been compliant with maintenance inhaler sec to insurance issues a/w asthma exacerbation after viral bronchitis Significantly improved though still has wheeze Overall feeling better Would like to be d/stevan home layout worker for arrangement of meds Will f/u in clinic in 2-3 weeks C/w slow prednisone taper
--- NOTE | 2017-07-09 01:07 | ED ---
Shola Ulloa Julia, scribed for Rian Iyer MD on 07/04/17 at 2126 . Shortness of Breath - HPI Summary HPI Summary: This patient is a 26 year old F BIBA to [facility] with a chief complaint of a cold like symptoms for the past couple of days with SOB worsening today. Patient reports lightheadedness. Patient denies fever. Symptoms unchanged by nebulizer treatments with albuterol today. Patient reports history of significant asthma resulting in hospitalization. She denies hx of intubation. - History of Current Complaint Chief Complaint: EDShortnessOfBreath Hx Obtained From: Patient Onset/Duration: Lasting Hours Timing: Constant Dyspnea At: Rest Alleviating Factors: Nothing Associated Signs & Symptoms: Dizzy Related History: Similar Episode - Allergy/Home Medications Allergies/Adverse Reactions: Allergies Allergy/AdvReac Type Severity Reaction Status Date / Time NSAIDS (Non-Steroidal Allergy Shortness Verified 07/04/17 21:26 Anti-Inflamma of Breath PMH/Surg Hx/FS Hx/Imm Hx Respiratory History: Reports: Hx Asthma, Other Respiratory Problems/Disorders - Pertussis age 12 GI History: Reports: Hx Gall Bladder Disease - 10/27/15: [place] 2 years ago Psychiatric History: Reports: Other Psychiatric Issues/Disorders - Mood disorder NOS - Surgical History Surgery Procedure, Year, and Place: CHOLECYSTECTOMY Hx Anesthesia Reactions: Yes - Unknown reaction in recovery after choly: sensation of shortness of breath - Immunization History Date of Tetanus Vaccine: UTD Date of Influenza Vaccine: 11/17/15 - Family History Known Family History: Positive: Cardiac Disease, Hypertension, Diabetes Negative: Respiratory Disease - Social History Alcohol Use: None Hx Substance Use: Yes Substance Use Type: Reports: None Hx Tobacco Use: Yes Smoking Status (MU): Former Smoker Have You Smoked in the Last Year: No Review of Systems Positive: Other - lightheaded. Negative: Fever Positive: Shortness Of Breath All Other Systems Reviewed And Are Negative: Yes Physical Exam - Summary Physical Exam Summary: Appearance: mild distress, Well-nourished, Skin: Warm, dry, no obvious rash Eyes: sclera anicteric, no conjunctiva pallor ENT: mucous membranes moist, pharynx appears normal Neck: Supple, nontender Respiratory: mild respiratory distress, tachypnea, poor aeration, diffuse quiet expiratory wheezes Cardiovascular: Normal S1, S2. No murmurs. Normal distal pulses in tibial and radial bilaterally. Abdomen: Soft, nontender, normal active bowel sounds present Musculoskeletal: Normal, Strength/ROM Intact Neurological: A&Ox3, awake and alert, mentation is normal, speech is fluent and appropriate Psychiatric: affect is normal, does not appear anxious or depressed Triage Information Reviewed: Yes Vital Signs On Initial Exam: Initial Vitals Temp Pulse Resp BP Pulse Ox 37.3 C 114 24 139/93 94 07/04/17 21:24 07/04/17 21:24 07/04/17 21:24 07/04/17 21:24 07/04/17 21:24 Vital Signs Reviewed: Yes Diagnostics - Vital Signs Vital Signs Temp Pulse Resp BP Pulse Ox 07/05/17 01:04 97 16 96 07/05/17 00:00 113 26 97 07/04/17 23:52 106 19 125/70 97 07/04/17 23:24 101 22 113/64 96 07/04/17 23:00 98 20 97 07/04/17 22:59 107 28 97 07/04/17 22:52 105 19 123/79 98 07/04/17 22:25 103 24 98 07/04/17 22:22 100 21 132/76 99 07/04/17 21:57 98 16 97 07/04/17 21:24 37.3 C 114 24 139/93 94 - Laboratory Lab Results: Lab Results 07/04/17 07/04/17 Range/Units 21:32 21:32 WBC 8.5 (3.5-10.8) 10^3/ul RBC 4.87 (4.0-5.4) 10^6/ul Hgb 14.0 (12.0-16.0) g/dl Hct 42 (35-47) % MCV 86 (80-97) fL MCH 29 (27-31) pg MCHC 33 (31-36) g/dl RDW 13 (10.5-15) % Plt Count 208 (150-450) 10^3/ul MPV 7.9 (7.4-10.4) um3 Neut % (Auto) 89.5 H (38-83) % Lymph % (Auto) 6.8 L (25-47) % [place] % (Auto) 3.7 (0-7) % Eos % (Auto) 0 (0-6) % Baso % (Auto) 0 (0-2) % Absolute Neuts (auto) 7.6 (1.5-7.7) 10^3/ul Absolute Lymphs (auto) 0.6 L (1.0-4.8) 10^3/ul Absolute Monos (auto) 0.3 (0-0.8) 10^3/ul Absolute Eos (auto) 0 (0-0.6) 10^3/ul Absolute Basos (auto) 0 (0-0.2) 10^3/ul Absolute Nucleated RBC 0 10^3/ul Nucleated RBC % 0.1 Sodium 141 (139-145) mmol/L Potassium 4.1 (3.5-5.0) mmol/L Chloride 107 (101-111) mmol/L Carbon Dioxide 24 (22-32) mmol/L Anion Gap 10 (2-11) mmol/L BUN 6 (6-24) mg/dL Creatinine 0.50 L (0.51-0.95) mg/dL Est GFR ( Amer) 191.8 (>60) Est GFR (Non-Af Amer) 149.1 (>60) BUN/Creatinine Ratio 12.0 (8-20) Glucose 150 H (70-100) mg/dL Calcium 9.5 (8.6-10.3) mg/dL Total Bilirubin 0.50 (0.2-1.0) mg/dL AST 15 (13-39) U/L ALT 16 (7-52) U/L Alkaline Phosphatase 70 (34-104) U/L Total Protein 7.2 (6.4-8.9) g/dL Albumin 4.9 (3.2-5.2) g/dL Globulin 2.3 (2-4) g/dL Albumin/Globulin Ratio 2.1 (1-3) Beta HCG, Quant < 0.60 mIU/mL Result Diagrams: 07/07/17 05:38 07/07/17 05:38 Lab Statement: Any lab studies that have been ordered have been reviewed, and results considered in the medical decision making process. - Radiology CXR Radiology Interpretation Completed By: ED Physician - Clear. No acute disease. Re-Evaluation - Re-Evaluation 1 Re-Evaluation Time: 00:48 Change: Improved - Patients symptoms are improved, but not resolved. Another continuous nebulizer tx will be ordered. Second Eval Re-Evaluation Time: 04:07 Change: Worse Comment: Pt has deteriorated over the past 20-30 mins with persistent wheezing and increased work of breathing. She appears to be getting tired and anxious. Have tried high flow nasal O2 but she is not tolerating that, says it is burning her nose. Will try switching to bipap. She will need ICU, will continue to closely monitor. Course/Dx - Diagnoses Provider Diagnoses: Status asthmaticus, Respiratory distress - Physician Notifications Discussed Care of Patient With: Loki Blandon Time Discussed With Above Provider: 02:50 Instructed by Provider To: Admit As Inpatient - Critical Care Time Critical Care Time: 30-74 min - Pt with moderate to severe respiratory distress from asthma exacerbation, deteriorated during ED course requiring bipap and frequent re evaluations. In danger of progressing to respiratory failure. Discharge - Sign-Out/Discharge Documenting (check all that apply): Discharge/Admit/Transfer - Discharge Plan Condition: Critical Disposition: ADMITTED TO [facility] - Billing Disposition and Condition Condition: CRITICAL Disposition: [facility] [place] The documentation as recorded by the Shola yap Julia accurately reflects the service I personally performed and the decisions made by me, Rian Iyer MD.
--- NOTE | 2017-07-09 16:11 | DS ---
CC: Dr. Blas; Dr. Salcedo at the [facility]; Dr. Malone DISCHARGE SUMMARY: DATE OF ADMISSION: 07/05/17 DATE OF DISCHARGE: 07/08/17 PRIMARY CARE PROVIDER: Dr. Malone. DISCHARGE DIAGNOSIS: Status asthmaticus. MEDICATION LIST: 1. Albuterol nebulizer 2.5 mg inhaled q.4 hours p.r.n. shortness of breath or wheezing. 2. Albuterol HFA 2 puffs inhaled q.i.d. p.r.n. shortness of breath or wheezing. 3. Benzonatate 100 mg p.o. t.i.d. p.r.n. cough. 4. Famotidine 20 mg p.o. b.i.d. 5. Dulera 200/5 two puffs inhaled b.i.d. 6. Prednisone taper as follows: 60 mg for 5 days, 50 mg for 5 days, 40 mg for 5 days, 30 mg for 5 d ays, 20 mg for 5 days, 10 mg for 5 days, 5 mg for 5 days and stop. HOSPITAL COURSE: Ms. Mathew is a 26-year-old lady with a past medical history as stated above that p resented to the emergency room with complaints of severe shortness of breath. She had developed URI symptoms 2 days prior to admission with progressive shortness of breath and wheezing. For more detai ls about her presentation, I refer you to her history and physical. In the emergency room, the patient received nebulizers including 2 hours of MetaNeb, IV magnesium, rodrigez bcu heparin, IV steroids and despite all those measures, she is still continued to have severe shortn ess of breath with diffuse wheezing. For that reason, she was admitted to the intensive care unit whe re she required Vapotherm initially. Her chest x-ray showed no active cardiopulmonary disease. She was seen in consultation by Critical Care (Dr. Valladares) and his impression was that the patient was in status asthmaticus with acute hypoxic respiratory failure likely secondary to a viral URI. The pa wood had progressive improvement of her symptoms and she was transferred to the medical floor on . The patient does not know what is her best peak flow, but while on the floor her peak flow ra nged from 170 to 220 pulse treatment. The patient received education about the importance of peak fl ow and when to return to the emergency room. Unfortunately, the patient does not have insurance at this time. She met with Medicaid navigator and the expectation is that she will have insurance soon. All her prescriptions were [facility] to [facility] she will receive them through urgent Rx. She will have close followup at the [facility], but she remains at a high risk for readm ission specially if she is not able to continue her medications after these prescriptions run out. The patient was also seen in consultation by Pulmonology (Dr. Blas) and she agreed that the patient 's exacerbation was likely secondary to viral bronchitis and antibiotics were not recommended. She r ecommended nebulizations, Dulera and also she felt that the prednisone should be slowly tapered over the next 3 to 4 weeks. The patient is medically stable for discharge today. PHYSICAL EXAMINATION: Vital Signs: Temperature 98.4, heart rate is 78, respiratory rate 17, oxygen saturation is 94% on room air, blood pressure is 105/66. General: The patient is a pleasant lady, s itting up in bed in no acute distress. CVS: Normal S1, S2. Regular rate and rhythm. Chest: Breat h sounds present bilaterally with scattered wheeze. Abdomen: Soft. Bowel sounds are present. Extr emities: No edema. Neurologic: She is alert and oriented x3, able to move all 4 extremities. DIET: Regular diet. ACTIVITY: As tolerated. DISPOSITION: To home. STATUS WHILE IN THE HOSPITAL: Inpatient. The patient has a followup scheduled at the [facility] tomorrow on 07/09/17 at 9:[address] Malone on 08/13/17 at 10 a.m. Please keep in mind this is a summarized version of th is patient's hospital stay. If you need more information, please feel free to call me at [phone] or please obtain full medical records. TIME SPENT: Approximately 45 minutes was spent to complete this discharge. [id number]/[facility] #: [id number]
== END 2017-07-08 15:25 | disposition home or self-care (01) | DRG 189 ==
LOC: ED 21:22 → ICU 07-05 04:03 → MED 07-06 17:40
PROVIDERS: ADMIT Hospitalist; ATTEND Internal Medicine
PROC: 5A09457 Assistance with Respiratory Ventilation, 24-96 Consecutive Hours, Continuous Positive Airway Pressure (ICD-10-PCS; principal; 2017-07-05)
DX: J96.01 Acute respiratory failure with hypoxia (principal); J45.902 Unspecified asthma with status asthmaticus; J20.8 Acute bronchitis due to other specified organisms; Z79.899 Other long term (current) drug therapy; Z88.8 Allergy status to other drugs, medicaments and biological substances; Z82.49 Family history of ischemic heart disease and other diseases of the circulatory system; Z82.5 Family history of asthma and other chronic lower respiratory diseases
CPT/HCPCS: 36415; 36600; 71045; 80048; 80053; 82803; 83605; 84702; 85025; 85027; 87502; 87641; 94640; 94664; 99285; A9270-GY; J0171; J1644; J2060; J2920; J2930; J3105; J3475; J7512; J7611